=== PATIENT | male | born 1990 | race Hispanic/Latino ===

== ENCOUNTER 2025-07-13 23:32 | Inpatient (IN) | payer SELFPAY ==
[2025-07-13 23:34] VITALS: BP 118/72; PULSE 132; RESP 16; O2SAT 97; BMI 43.3
--- NOTE | 2025-07-13 23:34 | ED.GIBLEED ---
HPI - GI Bleed General Chief complaint: GI Bleed Stated complaint: throwing up blood Time Seen by Provider: 07/13/25 23:33 Source: patient, EMS, RN notes reviewed and old records reviewed Mode of arrival: EMS Limitations: no limitations History of Present Illness HPI Narrative: 35-year-old male history of gastric sleeve performed in [place] patient states he is not on any daily medications. States he has started throwing up blood about 30 minutes prior to arrival. EMS states he had about 300 mL total. He denies any pain. No shortness of breath. He states that he noticed some black stools earlier today. He denies any lightheadedness or passing out. No syncope. Denies any abdominal back or flank pain. He has not had similar symptoms in the past. He states no daily medications. States gastric sleeve is his only prior surgery. Denies any allergies to medications. He denies tobacco, alcohol or recreational drugs. Patient currently works at the [employer]. Related Data Allergies Allergy/AdvReac Type Severity Reaction Status Date / Time No Known Drug Allergies Allergy Verified 07/13/25 23:34 Review of Systems Review of Systems ROS Unobtainable: All systems reviewed & are unremarkable except as noted in HPI and below Patient History Social History Smoking Status: Never smoker Exam Narrative Exam Narrative: GEN: Obese male, alert and oriented x 3, patient appears to be in moderate distress. No diaphoresis. HEENT: Atraumatic, pupils are equal round reactive to light, extraocular movements are intact, nares are clear, there is no conjunctival pallor. Throat is clear without any exudates, erythema, tonsillar enlargement or uvular deviation, patient has some bright red blood around the edge of his mouth. HEART: Regular rate and rhythm without murmur, clicks, rubs. Pulses are equal in upper and lower extremities LUNGS:Lungs clear to auscultation, no wheezes, rales, crackles, chest moves symmetrically ABD:bowel sounds normal, soft, non-tender, no guarding, rebound, rigidity, no masses noted, no hepatosplenomegaly :No CVA tenderness MSCL: Non-tender, no muscle atrophy, muscles strength 5/5 upper and lower extremities, full range of motion, normal gait NEURO:CN 2-12 intact, sensation normal. Initial Vital Signs Initial Vital Signs: Vital Signs Pulse Rate 132 H 07/13/25 23:34 Respiratory Rate 16 07/13/25 23:34 Blood Pressure 118/72 07/13/25 23:34 Pulse Oximetry 97 07/13/25 23:34 Oxygen Delivery Method Room Air 07/13/25 23:34 Course Orders Ordered: ED Orders 07/13/25 23:35 Complete Blood Count AUTO DIFF Stat Comprehensive Metabolic Panel Stat Lipase Stat PRBC [Packed Cells] Stat PTT Partial Thromboplastin [place] Stat Prothrombin Time INR Stat Type and Screen Stat Hydromorphone HCl (Hydromorphone Hcl 0.5 Mg/0.5 Ml Syringe) 0.5 mg IV Q2H PRN PRN Reason: Pain, Severe (7-10) Lactated Ringer's (Lactated Ringers) 1,000 mls @ 42 mls/hr IV CONT JHONATHAN Last Admin: 07/14/25 01:00 Dose: 42 mls/hr Documented By: GELACIO Sodium Chloride (Normal Saline 0.9%) 1,000 mls @ 125 mls/hr IV CONT JHONATHAN Lorazepam (Lorazepam 2 Mg/Ml Inj) 2.7 mg 0.02 mg/kg (2.7 mg) IV Q6HR PRN PRN Reason: Sedation Naloxone HCl (Naloxone 0.4 Mg/Ml Vial) 0.2 mg IV Q2MIN PRN PRN Reason: Opiate Reversal Ondansetron HCl (Ondansetron 4 Mg/2 Ml Inj) 4 mg IV NOW PRN PRN Reason: Nausea And Vomiting Last Admin: 07/13/25 23:42 Dose: 4 mg Documented By: LUPIS Pantoprazole Sodium (Pantoprazole 40 Mg Vial) 40 mg IV BID JHONATHAN Sucralfate (Sucralfate 1 Gm/10 Ml Oral Susp) 1 gm PO Q6HR JHONATHAN Discontinued Medications Tranexamic Acid 1,000 mg/ (Sodium Chloride) 100 mls @ 200 mls/hr IV NOW ONE Stop: 07/14/25 00:02 Last Admin: 07/13/25 23:42 Dose: 200 mls/hr Documented By: LUPIS Lorazepam (Lorazepam 2 Mg/Ml Inj) 0.5 mg IV NOW ONE Stop: 07/13/25 23:46 Last Admin: 07/13/25 23:53 Dose: 0.5 mg Documented By: LUPIS Pantoprazole Sodium (Pantoprazole 40 Mg Vial) 80 mg IV NOW ONE Stop: 07/13/25 23:49 Last Admin: 07/13/25 23:58 Dose: 80 mg Documented By: LUPIS Vital Signs Vital signs: Vital Signs - 8 hr 07/13/25 23:34 07/13/25 23:35 07/13/25 23:46 Temperature Pulse Rate 132 H 134 H 90 Respiratory Rate 16 24 103 H Blood Pressure 118/72 Pulse Oximetry 97 96 91 Oxygen Delivery Method Room Air Room Air Oxygen Flow Rate 07/13/25 23:46 07/13/25 23:50 07/13/25 23:50 Temperature Pulse Rate 95 H Respiratory Rate 29 H Blood Pressure 78/49 L 96/60 Pulse Oximetry 92 Oxygen Delivery Method Oxygen Flow Rate 07/13/25 23:55 07/13/25 23:55 07/13/25 23:56 Temperature 98.5 F Pulse Rate 89 99 H Respiratory Rate 20 23 Blood Pressure 105/61 105/61 Pulse Oximetry 94 Oxygen Delivery Method Nasal Cannula Oxygen Flow Rate 4 07/14/25 00:00 07/14/25 00:00 07/14/25 00:05 Temperature Pulse Rate 90 91 H Respiratory Rate 14 15 Blood Pressure 118/62 Pulse Oximetry 96 95 Oxygen Delivery Method Oxygen Flow Rate 07/14/25 00:05 07/14/25 00:10 07/14/25 00:10 Temperature Pulse Rate 91 H Respiratory Rate 23 Blood Pressure 113/60 117/60 Pulse Oximetry 97 Oxygen Delivery Method Oxygen Flow Rate 07/14/25 00:15 07/14/25 00:15 07/14/25 00:17 Temperature 98.9 F Pulse Rate 94 H 94 H Respiratory Rate 14 14 Blood Pressure 121/59 L 117/61 Pulse Oximetry 94 Oxygen Delivery Method Oxygen Flow Rate 07/14/25 00:20 07/14/25 00:20 Temperature Pulse Rate 91 H Respiratory Rate 19 Blood Pressure 122/61 Pulse Oximetry 91 Oxygen Delivery Method Oxygen Flow Rate MDM - GI Bleed Lab Data 07/13/25 23:35 07/13/25 23:35 Labs: Lab Results 07/13/25 Range/Units 23:35 WBC 8.7 (4.5-11.0) X10^3/uL RBC 3.85 L (4.5-5.9) X10^6/uL Hgb 12.0 L (13.5-17.5) g/dL Hct 34.6 L (41-53) % MCV 89.7 (80-100) fL MCH 31.3 (26-34) PG MCHC 34.9 (30-36) % RDW 13.2 (11.6-14.8) % Plt Count 219 (150-400) X10^3/uL Neut % (Auto) 54.7 (50-75) % Lymph % (Auto) 34.8 (25-40) % [place] % (Auto) 5.3 (3-14) % Eos % (Auto) 4.7 H (2-4) % Baso % (Auto) 0.5 (0-2) % Neut # (Auto) 4800 (9174-4587) /uL Lymph # (Auto) 3000 (0220-1739) /uL [place] # (Auto) 500 (0-900) /uL Eos # (Auto) 400 (0-450) /uL Baso # (Auto) 0 (0-100) /uL PT 12.0 (9.4-12.5) SECONDS INR 1.1 (0.9-1.3) APTT 33 (25.1-36.5) SECONDS Sodium 141 (137-145) mmol/L Potassium 4.0 (3.4-5.1) mmol/L Chloride 112 H (98-107) mmol/L Carbon Dioxide 24 (22-32) mmol/L BUN 44 H (9-20) mg/dL Creatinine 1.02 (0.66-1.25) mg/dL Estimated GFR > 60 (>60) mL/min BUN/Creatinine Ratio 43.1 H (6-22) Glucose 127 H (70-99) mg/dL Calcium 9.1 (8.4-10.2) mg/dL Total Bilirubin 0.4 (0.2-1.3) mg/dL AST 23 (17-59) IU/L ALT 21 (<50) IU/L Alkaline Phosphatase 63 (38-126) U/L Total Protein 6.5 (6.3-8.2) g/dL Albumin 3.9 (3.5-5.0) g/dL Globulin 2.6 (1.7-4.1) g/dL Albumin/Globulin Ratio 1.5 (1.0-2.8) Lipase 69 (23-300) U/L Blood Type O Positive Antibody Screen Negative Crossmatch See Detail MDM Narrative Medical decision making narrative: 35-year-old male with a history of gastric sleeve who has been vomiting blood. Patient has reportedly had 300 mL bright red blood out. Refused IV access or interventions by EMS he is quite anxious on arrival but cooperative. Initial labs show hemoglobin of 12 white count 8.7 platelets of 219, INR and PTT are normal, chloride 112 BUN 44 electrolytes are otherwise appropriate glucose is 127 with a creatinine 1.02 LFTs are normal lipase is 69. Patient has a differential 150 mL of bright red blood out here in the department. He had reported 300 mL out with the EMS. Patient is receiving Protonix, tranexamic acid, Zofran. Patient received blood. Has a significant drop in his pressure had type and screen initiated but did receive 1 unit of O-negative. Spoke with Dr. Robbins general surgery @ 1878. He will come and evaluate patient plan for OR tonight. Dr. Robbins in the department @ 1218am Critical Care Time Critical Care Time Critical Care Time: Yes Total Critical Care Time: 35 Attestation: The high probability of a clinically significant, sudden or life threatening deterioration of the cardiac, GI system(s) required my full and direct attention, intervention and personal management. The aggregate critical care time was [--] minutes. This time is in addition to time spent performing reported procedures but includes the following: [x] Data Review and interpretation [x] Patient assessment and monitoring of vital signs [x] Documentation [x] Medication orders and management Discharge Plan Departure Patient Disposition: Admitted As Inpatient Clinical Impression: Acute GI bleeding, H/O gastric sleeve Admit Date/Time: 07/14/25 00:22 Admit Provider: Steve Robbins
[2025-07-13 23:35] VITALS: PULSE 134; RESP 24; O2SAT 96
[2025-07-13] MEDS: ONDANSETRON 4 MG/2 ML INJ IV (23:42)
[2025-07-13] MEDS: TRANEXAMIC ACID 1,000 MG in SODIUM CHLORIDE 0.9% 100 ML 200 MG IV (23:42)
[2025-07-13 23:46] VITALS: BP 78/49; PULSE 90; RESP 103; O2SAT 91
[2025-07-13 23:50] VITALS: BP 96/60; PULSE 95; RESP 29; O2SAT 92
[2025-07-13 23:51] LABS: Add Manual Diff / Slide Review NO; Hematocrit 34.6 % (41-53); Hemoglobin 12.0 g/dL (13.5-17.5); Lymphocytes Absolute Auto 3000 /uL (1100-4500); Mean Corpuscular HGB Conc 34.9 % (30-36); Mean Corpuscular Hemoglobin 31.3 PG (26-34); Mean Corpuscular Volume 89.7 fL (80-100); Platelet Count 219 X10^3/uL (150-400)
[2025-07-13 23:55] VITALS: BP 105/61; PULSE 89; RESP 20; O2SAT 94
[2025-07-13 23:56] VITALS: BP 105/61; PULSE 99; RESP 23; TEMP 36.9
[2025-07-13 23:57] LABS: INR 1.1 (0.9-1.3); Prothrombin Time 12.0 SECONDS (9.4-12.5)
[2025-07-13] MEDS: PANTOPRAZOLE 40 MG VIAL 80 MG IV (23:58)
[2025-07-13 23:59] LABS: PTT Partial Thromboplastin Tim 33 SECONDS (25.1-36.5)
[2025-07-14] VITALS (69 sets, daily range): BP systolic 96–130; BP diastolic 51–84; PULSE 60–103; RESP 8–46; TEMP 36–37.4; O2SAT 83–100; BMI 43.3
[2025-07-14 00:01] LABS: Alanine Aminotransferase 21 IU/L (<50); Albumin 3.9 g/dL (3.5-5.0); Albumin Globulin Ratio 1.5 (1.0-2.8); Alkaline Phosphatase 63 U/L (38-126); Blood Urea Nitrogen 44 mg/dL (9-20); Calcium 9.1 mg/dL (8.4-10.2); Carbon Dioxide 24 mmol/L (22-32); Chloride 112 mmol/L (98-107); Estimated Glomerular Filt Rate > 60 mL/min (>60); Globulin 2.6 g/dL (1.7-4.1); Glucose 127 mg/dL (70-99); HEMOLYSIS < 15 (0-50); Lipase 69 U/L (23-300); Potassium 4.0 mmol/L (3.4-5.1); Sodium 141 mmol/L (137-145); Total Protein 6.5 g/dL (6.3-8.2)
--- NOTE | 2025-07-14 00:22 | P.HP_ITS ---
History of Present Illness History of Present Illness Date Patient Seen: 07/14/25 Time Patient Seen: 00:22 Chief complaint: throwing up blood Narrative: Called by ED for emergent EGD. Patient vomiting BRB, hypotensive to 70s. Melena over past 24-48 hours. Called 911. EMS measured 300cc BRB. Another episode of hematemesis 150cc in ED. Initial hgb 12, coags normal. Patient given O-negative blood, TXA. Patient works at [employer]. No h/o PUD. Non-smoker, denies EtOH, denies recreational drugs. Does take Aleve about once per week for headache. Had gastric sleeve in [place] in 2022. BMI 43. Patient admitted for emergent EGD. [facility] [place] Social History Smoking Status: Never smoker Meds Home Medications and Allergies Allergies Allergy/AdvReac Type Severity Reaction Status Date / Time No Known Drug Allergies Allergy Verified 07/13/25 23:34 Exam Vital Signs (past 8 hours): - 07/13/25 23:34 07/13/25 23:56 07/14/25 00:17 Temperature 98.5 F 98.9 F Pulse Rate 132 H 99 H 94 H Respiratory Rate 16 23 14 Blood Pressure 118/72 105/61 117/61 Pulse Oximetry 97 Oxygen Delivery Method Room Air Oxygen Delivery Method Room Air Narrative Exam Narrative: Const General: BMI 43, distress Orientation: alert and oriented x3 HENMT Ears: hearing grossly normal bilaterally Eyes Visual Funk: normal visual funk by confrontation Conjunctivae: conjunctivae normal Sclera: sclerae normal EOM: EOM intact bilaterally Resp Effort & Inspection: normal respiratory effort and able to speak in complete sentences Cardio Rate: regular rate GI Palpation: soft (NT) Extrem General: no pedal edema and no calf tenderness Objective Labs 07/13/25 23:35 07/13/25 23:35 Labs: Laboratory Results - last 24 hr 07/13/25 23:35 WBC 8.7 RBC 3.85 L Hgb 12.0 L Hct 34.6 L MCV 89.7 MCH 31.3 MCHC 34.9 RDW 13.2 Plt Count 219 Neut % (Auto) 54.7 Lymph % (Auto) 34.8 [place] % (Auto) 5.3 Eos % (Auto) 4.7 H Baso % (Auto) 0.5 Neut # (Auto) 4800 Lymph # (Auto) 3000 [place] # (Auto) 500 Eos # (Auto) 400 Baso # (Auto) 0 PT 12.0 INR 1.1 APTT 33 Sodium 141 Potassium 4.0 Chloride 112 H Carbon Dioxide 24 BUN 44 H Creatinine 1.02 Estimated GFR > 60 BUN/Creatinine Ratio 43.1 H Glucose 127 H Calcium 9.1 Total Bilirubin 0.4 AST 23 ALT 21 Alkaline Phosphatase 63 Total Protein 6.5 Albumin 3.9 Globulin 2.6 Albumin/Globulin Ratio 1.5 Lipase 69 Crossmatch See Detail Assessment & Plan Assessment and plan (1) Hematemesis of fresh blood: Status: Acute Plan Emergent EGD, possible clip, cautery, injection. The risks, benefits and options regarding the procedure were explained to the patient in detail. Risk discussion included but not limited to: bleeding, perforation, ongoing bleeding, potential for surgical control of bleeding. The patient was encouraged to ask questions and they were answered to their satisfaction. The patient understands and is agreeable to proceed. Time-Based Coding :: [TOTAL MINUTES] spent with patient and on the chart (including review of chart, obtaining history, exam, reviewing outside data, placing orders, documenting exam and treatment plan, and counseling patient) on [DATE]. 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
[2025-07-14] MEDS: LACTATED RINGERS 1,000 ML 42 ML IV (01:00)
--- NOTE | 2025-07-14 02:18 | PM.OP.EGD ---
Operative Date/Time/Diagnoses Date of procedure: 07/14/25 Time of procedure: 02:19 Pre-op diagnosis: Hematemesis Post-op diagnosis: other (Severe erosive esophagitis, LA Grade D, hiatal hernia, no active bleeding) Procedure & Clinicians Study performed: EGD with irrigation Same procedure(s) as scheduled: Yes Indications: 35yo M presented to ED with active hematemesis of BRB, hypotension. Surgeon: Steve Robbins Anesthesia Type: General Procedure Notes SCOAP/Timeout: Performed Procedure in detail: EGD Informed consent was obtained. The procedure, its risks, benefits, and alternatives were discussed. Patient understood and agreed to proceed. The patient was placed in the left lateral decubitus position with head elevated. General anesthesia administered per anesthesia. The video endoscope was inserted into the oropharynx and guided under direct vision into the esophagus, stomach, and duodenum which were carefully examined. The patient tolerated the procedure very well. There were no apparent complications. Significant EGD findings: Z-line noted at: 38cm Severe erosive esophagitis, LA Grade D, no active bleeding, no biopsies done due to recent bleeding 2cm hiatal hernia s/p sleeve gastrectomy No bleeding source identified in duodenum or stomach Findings: other findings (severe esophagitis) Specimen(s): none sent Complications: none Impression: UGI bleeding due to severe erosive esophagitis Post-procedure Recommendations: EDG in 6-8 weeks Plan for aftercare: PACU then ICU Follow up: weeks (8) Disposition: ICU
[2025-07-14] MEDS: SODIUM CHLORIDE 0.9% 1,000 ML 125 ML IV ×2 (03:33→11:33)
[2025-07-14 04:07] LABS: Add Manual Diff / Slide Review NO; Hematocrit 34.2 % (41-53); Hemoglobin 11.9 g/dL (13.5-17.5); Lymphocytes Absolute Auto 800 /uL (1100-4500); Mean Corpuscular HGB Conc 34.7 % (30-36); Mean Corpuscular Hemoglobin 31.0 PG (26-34); Mean Corpuscular Volume 89.3 fL (80-100); Platelet Count 147 X10^3/uL (150-400)
[2025-07-14 04:16] LABS: INR 1.1 (0.9-1.3); Prothrombin Time 12.5 SECONDS (9.4-12.5)
[2025-07-14 04:25] LABS: Blood Urea Nitrogen 38 mg/dL (9-20); Calcium 8.5 mg/dL (8.4-10.2); Carbon Dioxide 22 mmol/L (22-32); Chloride 113 mmol/L (98-107); Estimated Glomerular Filt Rate > 60 mL/min (>60); Glucose 122 mg/dL (70-99); HEMOLYSIS 24 (0-50); PTT Partial Thromboplastin Tim 31 SECONDS (25.1-36.5); Potassium 4.9 mmol/L (3.4-5.1); Sodium 139 mmol/L (137-145)
[2025-07-14] MEDS: SUCRALFATE 1 GM/10 ML ORAL SUSP PO ×3 (05:59→17:44)
--- NOTE | 2025-07-14 06:00 | PM.PN.IH.1 ---
Subjective Subjective Date Patient Seen: 07/14/25 Time Patient Seen: 06:00 Interval history: No hematemesis last night Hgb stable, 11.9 this morning Hemodynamically stable overnight Coags normal Exam Vital Signs (past 8 hours): - 07/13/25 23:34 07/13/25 23:35 07/13/25 23:46 Temperature Pulse Rate 132 H 134 H 90 Respiratory Rate 16 24 103 H Blood Pressure 118/72 Pulse Oximetry 97 96 91 Oxygen Delivery Method Room Air Room Air Oxygen Flow Rate 07/13/25 23:46 07/13/25 23:50 07/13/25 23:50 Temperature Pulse Rate 95 H Respiratory Rate 29 H Blood Pressure 78/49 L 96/60 Pulse Oximetry 92 Oxygen Delivery Method Oxygen Flow Rate 07/13/25 23:55 07/13/25 23:55 07/13/25 23:56 Temperature 98.5 F Pulse Rate 89 99 H Respiratory Rate 20 23 Blood Pressure 105/61 105/61 Pulse Oximetry 94 Oxygen Delivery Method Nasal Cannula Oxygen Flow Rate 4 07/14/25 00:00 07/14/25 00:00 07/14/25 00:05 Temperature Pulse Rate 90 91 H Respiratory Rate 14 15 Blood Pressure 118/62 Pulse Oximetry 96 95 Oxygen Delivery Method Oxygen Flow Rate 07/14/25 00:05 07/14/25 00:10 07/14/25 00:10 Temperature Pulse Rate 91 H Respiratory Rate 23 Blood Pressure 113/60 117/60 Pulse Oximetry 97 Oxygen Delivery Method Oxygen Flow Rate 07/14/25 00:15 07/14/25 00:15 07/14/25 00:17 Temperature 98.9 F Pulse Rate 94 H 94 H Respiratory Rate 14 14 Blood Pressure 121/59 L 117/61 Pulse Oximetry 94 Oxygen Delivery Method Oxygen Flow Rate 07/14/25 00:20 07/14/25 00:20 07/14/25 00:25 Temperature Pulse Rate 91 H Respiratory Rate 19 Blood Pressure 122/61 128/84 Pulse Oximetry 91 Oxygen Delivery Method Oxygen Flow Rate 07/14/25 00:25 07/14/25 00:50 07/14/25 00:57 Temperature 97.9 F 98.4 F Pulse Rate 103 H 99 H 99 H Respiratory Rate 15 21 18 Blood Pressure 114/57 L 108/56 L Pulse Oximetry 94 99 Oxygen Delivery Method Nasal Cannula Room Air Oxygen Flow Rate 3 07/14/25 01:52 07/14/25 01:55 07/14/25 02:01 Temperature 97.9 F Pulse Rate 78 102 H 98 H Respiratory Rate 16 21 16 Blood Pressure 130/68 129/66 129/63 Pulse Oximetry 99 93 99 Oxygen Delivery Method Room Air Room Air Room Air Oxygen Flow Rate 07/14/25 02:08 07/14/25 02:53 07/14/25 04:10 Temperature 96.8 F L Pulse Rate 92 H 83 73 Respiratory Rate 16 16 16 Blood Pressure 125/61 108/62 102/64 Pulse Oximetry 98 99 100 Oxygen Delivery Method Room Air Oxygen Flow Rate 07/14/25 04:39 Temperature Pulse Rate 76 Respiratory Rate 16 Blood Pressure Pulse Oximetry 96 Oxygen Delivery Method Oxygen Flow Rate Oxygen Delivery Method Room Air Oxygen Flow Rate 3 Const General: comfortable Resp Effort & Inspection: normal respiratory effort and able to speak in complete sentences Cardio Rate: regular rate GI Palpation: soft (NDNT) Objective Labs 07/14/25 04:00 07/14/25 04:00 Labs: Laboratory Results - last 24 hr 07/13/25 07/14/25 23:35 04:00 WBC 8.7 8.7 RBC 3.85 L 3.83 L Hgb 12.0 L 11.9 L Hct 34.6 L 34.2 L MCV 89.7 89.3 MCH 31.3 31.0 MCHC 34.9 34.7 RDW 13.2 13.4 Plt Count 219 147 L Neut % (Auto) 54.7 87.9 H D Lymph % (Auto) 34.8 8.7 L D [place] % (Auto) 5.3 1.1 L Eos % (Auto) 4.7 H 0.6 L Baso % (Auto) 0.5 1.7 Neut # (Auto) 4800 7600 H Lymph # (Auto) 3000 800 L [place] # (Auto) 500 100 Eos # (Auto) 400 100 Baso # (Auto) 0 100 PT 12.0 12.5 INR 1.1 1.1 APTT 33 31 Sodium 141 139 Potassium 4.0 4.9 Chloride 112 H 113 H Carbon Dioxide 24 22 BUN 44 H 38 H Creatinine 1.02 0.66 Estimated GFR > 60 > 60 BUN/Creatinine Ratio 43.1 H 57.6 H Glucose 127 H 122 H Calcium 9.1 8.5 Total Bilirubin 0.4 AST 23 ALT 21 Alkaline Phosphatase 63 Total Protein 6.5 Albumin 3.9 Globulin 2.6 Albumin/Globulin Ratio 1.5 Lipase 69 Blood Type O Positive Antibody Screen Negative Crossmatch See Detail PFSH Social History household members: spouse Smoking Status: Never smoker Assessment & Plan Assessment and plan (1) Acute GI bleeding: Status: Acute (2) Esophagitis determined by endoscopy: Status: Acute Plan UGI bleed due to severe esophagitis ICU observation H/H stable No ongoing hematemesis On PPI, Carafate Start non-carbonated clears Hemodynamically stable Observe for recurrent hemorrhage Time-Based Coding :: [TOTAL MINUTES] spent with patient and on the chart (including review of chart, obtaining history, exam, reviewing outside data, placing orders, documenting exam and treatment plan, and counseling patient) on [DATE]. 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
[2025-07-14 08:13] LABS: Add Manual Diff / Slide Review NO; Hematocrit 33.9 % (41-53); Hemoglobin 11.8 g/dL (13.5-17.5); Lymphocytes Absolute Auto 800 /uL (1100-4500); Mean Corpuscular HGB Conc 35.0 % (30-36); Mean Corpuscular Hemoglobin 31.3 PG (26-34); Mean Corpuscular Volume 89.5 fL (80-100); Platelet Count 153 X10^3/uL (150-400)
[2025-07-14] MEDS: PANTOPRAZOLE 40 MG VIAL IV ×2 (09:26→21:04)
[2025-07-14] MEDS: BENZOCAINE/MENTHOL 1 LOZ PKT 1 EACH PO (09:27)
[2025-07-14 11:48] LABS: Add Manual Diff / Slide Review NO; Hematocrit 33.7 % (41-53); Hemoglobin 11.8 g/dL (13.5-17.5); Lymphocytes Absolute Auto 1000 /uL (1100-4500); Mean Corpuscular HGB Conc 35.1 % (30-36); Mean Corpuscular Hemoglobin 31.1 PG (26-34); Mean Corpuscular Volume 88.6 fL (80-100); Platelet Count 166 X10^3/uL (150-400)
[2025-07-14 14:39] LABS: Add Manual Diff / Slide Review NO; Hematocrit 31.5 % (41-53); Hemoglobin 11.1 g/dL (13.5-17.5); Lymphocytes Absolute Auto 900 /uL (1100-4500); Mean Corpuscular HGB Conc 35.2 % (30-36); Mean Corpuscular Hemoglobin 31.4 PG (26-34); Mean Corpuscular Volume 89.1 fL (80-100); Platelet Count 140 X10^3/uL (150-400)
[2025-07-14 14:55] LABS: PTT Partial Thromboplastin Tim 32 SECONDS (25.1-36.5)
--- NOTE | 2025-07-14 15:07 | CM.DANOTE ---
B DCP Assessment note pt is a 35yo M here POD0 emergent EGT after presenting to the ED vomiting blood. 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 per chart review, pt from [place] but [place] out of state for work. works for [employer] lives with spouse Debby [phone]. per RN/chart review, H&H stable may even dc later today vs tomorrow. no needs anticipated besides work letter. pt encouraged to ask provider for work letter/any restrictions. P: dc today vs tomorrow no anticipated CM needs. will continue to follow as needed in case any should arise AMOL Pratt Discharge Planning/Care Management CM Discharge Assessment Start: 07/14/25 00:54 Freq: Status: Active Protocol: Document 07/14/25 15:06 (Rec: 07/14/25 15:06 [id number]) Discharge Planning Assessment Assigned Discharge AMOL Daniel Cna Caregiver Insurance Comment L&I DPOA/Assigned Spouse Debby Designee Name Contact Information [phone] Advance Directives? No History Provided By Patient Prior Living House Arrangements Household Members spouse Type of Drives own vehicle transporation used prior to admit Independent with ADL Yes 's Is patient alert and Yes oriented? Barriers to No Discharge Discharge Plan Home Review Status In Process Please Provide Date 07/14/25 Initial DC Assessment Was Performed Next Review Type Continued Stay Review
[2025-07-15] VITALS (11 sets, daily range): BP systolic 80–108; BP diastolic 29–61; PULSE 54–73; RESP 0–17; TEMP 36.2–36.7; O2SAT 98–100
[2025-07-15] MEDS: SUCRALFATE 1 GM/10 ML ORAL SUSP PO ×3 (00:23→12:18)
[2025-07-15 05:25] LABS: Add Manual Diff / Slide Review NO; Hematocrit 30.0 % (41-53); Hemoglobin 10.6 g/dL (13.5-17.5); Lymphocytes Absolute Auto 1800 /uL (1100-4500); Mean Corpuscular HGB Conc 35.3 % (30-36); Mean Corpuscular Hemoglobin 31.4 PG (26-34); Mean Corpuscular Volume 88.8 fL (80-100); Platelet Count 142 X10^3/uL (150-400)
--- NOTE | 2025-07-15 06:28 | PC.NURSE ---
Patient transferred from room 229 to room 204 by SHAWN Lockhart. Report received from SHAWN Abarca. Noted this morning that BP initially low at 80/29 and subsequently went up to 98/39 on left arm and 95/49. Dr. Austin here to see patient and was informed of low BP. He reviewed this mornings hgb/hct. No change in orders at this time.
--- NOTE | 2025-07-15 08:38 | P.PN_ITS ---
Subjective Subjective Date Patient Seen: 07/15/25 Time Patient Seen: 08:39 Interval history: Denies hematemesis or additional melena Tolerating full liquids No n/v SBP 80-90 this morning, asymptomatic Hgb stable 10 Exam Vital Signs (past 8 hours): - 07/15/25 01:00 07/15/25 01:30 07/15/25 02:00 Temperature Pulse Rate 67 64 63 Respiratory Rate 0 L 0 L 7 L Blood Pressure Pulse Oximetry Oxygen Flow Rate 07/15/25 05:30 07/15/25 05:31 07/15/25 05:45 Temperature 97.7 F Pulse Rate 54 L 56 L 54 L Respiratory Rate Blood Pressure 80/29 L 82/43 L 98/39 L Pulse Oximetry 98 Oxygen Flow Rate 07/15/25 06:20 07/15/25 08:00 Temperature 97.2 F L Pulse Rate 61 73 Respiratory Rate 17 Blood Pressure 95/49 L 102/61 Pulse Oximetry 100 Oxygen Flow Rate 0 Oxygen Delivery Method Room Air Oxygen Flow Rate 0 Narrative Exam Narrative: Const General: healthy appearing, comfortable and no acute distress Orientation: alert and oriented x3 Resp Effort & Inspection: normal respiratory effort and able to speak in complete sentences Cardio Rate: regular rate GI Palpation: soft (NT) Extrem General: no pedal edema and no calf tenderness Objective Labs 07/15/25 05:05 07/14/25 04:00 Labs: Laboratory Results - last 24 hr 07/14/25 07/14/25 07/15/25 11:33 14:28 05:05 WBC 8.7 8.1 7.5 RBC 3.81 L 3.53 L 3.37 L Hgb 11.8 L 11.1 L 10.6 L Hct 33.7 L 31.5 L 30.0 L MCV 88.6 89.1 88.8 MCH 31.1 31.4 31.4 MCHC 35.1 35.2 35.3 RDW 13.4 13.3 13.2 Plt Count 166 140 L 142 L Neut % (Auto) 85.8 H 85.7 H 68.3 Lymph % (Auto) 11.2 L 11.6 L 23.8 L [place] % (Auto) 2.4 L 1.7 L 6.1 Eos % (Auto) 0.0 L 0.1 L 1.2 L Baso % (Auto) 0.6 0.9 0.6 Neut # (Auto) 7400 H 7000 5100 Lymph # (Auto) 1000 L 900 L 1800 [place] # (Auto) 200 100 500 Eos # (Auto) 0 0 100 Baso # (Auto) 100 100 0 APTT 32 PFSH Social History household members: spouse Smoking Status: Never smoker Assessment & Plan Assessment and plan (1) Esophagitis determined by endoscopy: Status: Acute (2) Hematemesis of fresh blood: Status: Acute Plan No clinical ongoing bleeding Soft BP this morning Hgb stable Possible home later today, monitor BP We discussed ongoing management of severe esophagitis including PPI, carafate, rescope with GI in [place] (home), may need conversion to [facility] Time-Based Coding :: [TOTAL MINUTES] spent with patient and on the chart (including review of chart, obtaining history, exam, reviewing outside data, placing orders, documenting exam and treatment plan, and counseling patient) on [DATE]. 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
[2025-07-15] MEDS: SODIUM CHLORIDE 0.9% FLUSH 10 ML IV (08:57)
[2025-07-15] MEDS: PANTOPRAZOLE 40 MG VIAL IV (08:57)
--- NOTE | 2025-07-15 12:10 | CM.DPC ---
DCP Cont: Per Surgeon, pt seems to be tolerating full liquids and switched to general diet to see how pt manages and small bm and ambulating and possible discharge home later today pending progress. Recommendation of outpt f/u once back to [place]. No identified barriers to discharge at this time. AMOL Hewitt
--- NOTE | 2025-07-15 13:04 | PM.DS.IH.1 ---
History of Present Illness History of Present Illness Date Patient Seen: 07/15/25 Time Patient Seen: 13:04 Chief complaint: throwing up blood Narrative: Called by ED for emergent EGD. Patient vomiting BRB, hypotensive to 70s. Melena over past 24-48 hours. Called 911. EMS measured 300cc BRB. Another episode of hematemesis 150cc in ED. Initial hgb 12, coags normal. Patient given O-negative blood, TXA. Patient works at [employer]. No h/o PUD. Non-smoker, denies EtOH, denies recreational drugs. Does take Aleve about once per week for headache. Had gastric sleeve in [place] in 2022. BMI 43. Patient admitted for emergent EGD. Discharge Providers Provider Date of admission: 07/14/25 00:22 Discharge Date: 07/15/25 Discharge provider: Steve Robbins MD Summary Hospital Course Discharge Diagnosis: GI bleed secondary to severe esophagitis Hospital Course: Patient presents to ED with hematemesis, hypotension, requiring O-neg blood transfusion. EGD demonstrated severe distal esophagitis with stigmata of recent bleed, no active bleeding. Patient stable after procedure. Treated with BID PPI, carafate. Patient tolerated diet and was discharged home. Status at Discharge Cognitive/behavioral status at discharge: oriented Functional status at discharge: independent ambulation Overall status at discharge: patient is back to baseline Time Spent with Patient Time spent: Greater than 30 minutes Exam Vital Signs (past 8 hours): - 07/15/25 05:30 07/15/25 05:31 07/15/25 05:45 Temperature 97.7 F Pulse Rate 54 L 56 L 54 L Respiratory Rate Blood Pressure 80/29 L 82/43 L 98/39 L Pulse Oximetry 98 Oxygen Flow Rate 07/15/25 06:20 07/15/25 08:00 07/15/25 12:14 Temperature 97.2 F L 98.0 F Pulse Rate 61 73 72 Respiratory Rate 17 16 Blood Pressure 95/49 L 102/61 108/54 L Pulse Oximetry 100 100 Oxygen Flow Rate 0 0 Oxygen Delivery Method Room Air Oxygen Flow Rate 0 Narrative Exam Narrative: Const General: healthy appearing, comfortable and no acute distress Orientation: alert and oriented x3 HENMT Ears: hearing grossly normal bilaterally Eyes Visual Shukla: normal visual shukla by confrontation Conjunctivae: conjunctivae normal Sclera: sclerae normal EOM: EOM intact bilaterally Resp Effort & Inspection: normal respiratory effort and able to speak in complete sentences Cardio Rate: regular rate GI Palpation: soft (NT) Extrem General: no pedal edema and no calf tenderness Objective Labs 07/15/25 05:05 07/14/25 04:00 Labs: Laboratory Results - last 24 hr 07/14/25 07/15/25 14:28 05:05 WBC 8.1 7.5 RBC 3.53 L 3.37 L Hgb 11.1 L 10.6 L Hct 31.5 L 30.0 L MCV 89.1 88.8 MCH 31.4 31.4 MCHC 35.2 35.3 RDW 13.3 13.2 Plt Count 140 L 142 L Neut % (Auto) 85.7 H 68.3 Lymph % (Auto) 11.6 L 23.8 L [place] % (Auto) 1.7 L 6.1 Eos % (Auto) 0.1 L 1.2 L Baso % (Auto) 0.9 0.6 Neut # (Auto) 7000 5100 Lymph # (Auto) 900 L 1800 [place] # (Auto) 100 500 Eos # (Auto) 0 100 Baso # (Auto) 100 0 APTT 32 PFSH Social History household members: spouse Smoking Status: Never smoker Discharge Assessment & Plan Assessment and Plan Assessment: GI bleed secondary to severe esophagitis Plan of Treatment: BID PPI Carafate Soft diet to reduce risk for rebleed F/U with resident services coordinator in [place] (home) OK to return to work Return to ED with melena, hematemesis Discharge Plan Discharge Plan Patient Disposition: Home Provider Discharge Comment: Soft diet OK to return to work Return to ER if vomit blood or pass dark stool See a resident services coordinator in [place] to rescope in 8 weeks to document healing Discharge orders & Medications Prescriptions: New pantoprazole [Protonix] 40 mg Recon Soln 40 mg IV BID Qty: 120 0RF sucralfate 100 mg/mL Suspension 1 g PO Q6HR Qty: 1000 0RF No Action No Known Home Medications Diet/Activity/Treatments Diet: Diet as Tolerated Diet comment: soft diet Visit Report/Discharge Packet Instructions: DI for Esophagitis Stand Alone Forms: Patient Portal/API, Stroke Signs & Symptoms [facility]EE Charge Codes Discharge inpatient/observation: 07194
--- NOTE | 2025-07-15 15:09 | PC.NURSE ---
Discharge instructions given and understood. PIV and telemetery removed. Doctor's work order given. Pt discharged with pt's ride via private vehicle.
== END 2025-07-15 15:00 | disposition home or self-care (01) | DRG 382 ==
LOC: ED 07-14 00:18 → AC 07-14 00:23 → ICU 07-14 04:27 → AC 07-15 02:41
PROVIDERS: Admitting Provider Surgery; Emergency Provider Emergency Medicine; Referring Provider Emergency Medicine; Visit Provider Surgery
PROC: 0DJ08ZZ Inspection of Upper Intestinal Tract, Via Natural or Artificial Opening Endoscopic (ICD-10-PCS; principal; 2025-07-14 01:00)
DX: K22.11 Ulcer of esophagus with bleeding (principal); I95.9 Hypotension, unspecified; K44.9 Diaphragmatic hernia without obstruction or gangrene; Z98.84 Bariatric surgery status
CPT/HCPCS: 36415; 36430; 80048; 80053; 83690; 85025; 85610; 85730; 86850; 86900; 86901; 96365; 96375; 99285; 99291; P9016; J0330; J1100; J2060; J2250; J2405; J2470; J2704; J3010; J7030; J7050; J7120